=== PATIENT | male | born 2000 | race Caucasian/White ===

== ENCOUNTER 2021-09-12 13:04 | Emergency (ER) | payer BC ==
[2021-09-12 15:17] LABS: POTASSIUM,K 4.7 mmol/L (3.5-5.1)
[2021-09-12 15:28] LABS: CORONAVIRUS COVID-19 NAA NEGATIVE (NEGATIVE); INFLUENZA A NAA NEGATIVE (NEGATIVE); INFLUENZA B NAA NEGATIVE (NEGATIVE)
[2021-09-14 16:07] LABS: C.TRACHOMATIS BY TMA Negative (Negative); N.GONORRHOEAE BY TMA Negative (Negative)
== END 2021-09-12 16:21 | disposition home or self-care (01) ==
LOC: MW.ED 13:04 → EDSEX 13:04 → MW.ED 16:21
DX: H66.93 Otitis media, unspecified, bilateral (principal); Z88.0 Allergy status to penicillin; Z20.822 Contact with and (suspected) exposure to COVID-19
CPT/HCPCS: 0240U; 36415; 71046; 80053; 85025; 87491; 87591; 99283